=== PATIENT | female | born 1995 | race Hispanic/Latino ===

== ENCOUNTER 2023-06-03 19:50 | Emergency (ER) | payer BC ==
[~2023-06-03] VITALS: Ht 172.7 cm; Wt 99.3 kg
[2023-06-03] MEDS ORDERED: IBUPROFEN 600 MG TABLET PO ONE (21:30)
[2023-06-03] MEDS ORDERED: IBUP-2070 PO (22:45)
[2023-06-03 22:58] VITALS: BP 129/77; PULSE 89; RESP 16; O2SAT 98
== END 2023-06-03 23:08 | disposition home or self-care (01) ==
LOC: EDH 19:50
DX: T75.4XXA Electrocution, initial encounter (principal); Z88.5 Allergy status to narcotic agent
CPT/HCPCS: 84484; 93005